=== PATIENT | female | born 1995 | race Caucasian/White ===

== ENCOUNTER 2017-11-22 12:50 | Emergency (ER) | payer MEDICAID ==
[2017-11-22] MEDS ORDERED: ACETAMINOPHEN 325 MG TABLET PO ONE (13:20)
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
[2017-11-22 16:35] VITALS: BP 111/65
== END 2017-11-22 16:36 | disposition home or self-care (01) ==
LOC: ER 12:50
PROC: 0HQ1XZZ Repair Face Skin, External Approach (ICD-10-PCS; principal; 2017-11-22)
DX: O9A.312 Physical abuse complicating pregnancy, second trimester (principal); S01.81XA Laceration without foreign body of other part of head, initial encounter; J34.89 Other specified disorders of nose and nasal sinuses; Y08.09XA Assault by strike by other specified type of sport equipment, initial encounter; Z3A.18 18 weeks gestation of pregnancy
CPT/HCPCS: 12011; G0168; 70160; 99283